=== PATIENT | male | born 1990 ===

== ENCOUNTER 2016-08-17 11:33 | Emergency (ER) | payer MEDICAID, OTHER ==
[2016-08-17 11:39] VITALS: BMI 34.0
[2016-08-17] MEDS ORDERED: Sodium Chloride 0.9% 1,000 ML IV SCH (12:00)
--- NOTE | 2016-08-17 12:06 | ED PDOC ---
HPI: Abdomen Time Seen by Provider: 08/17/16 11:45 Chief Complaint (Nursing): Abdominal Pain Additional Complaint(s): Patient is a 26 y/o M presenting with 2 day history of non-radiating LLQ pain. He denies exacerbating or remitting factors. He reports that he has had a similar previous episode 2 years ago that he thinks was diverticulitis. He denies fever, nausea/vomiting, constipation, dysuria, scrotal swelling or pain, penile discharge. He reports some loose stool but reports that his mother gave him a laxative recently. Denies hx of abdominal surgeries, Past Medical History Vital Signs: Last Vital Signs Temp 97 F L 08/17/16 11:38 Pulse 76 08/17/16 11:38 Resp 18 08/17/16 13:10 BP 128/63 08/17/16 11:38 Pulse Ox 99 08/17/16 12:08 - Medical History PMH: Gastritis - Family History Family History: States: Diabetes - Home Medications Home Medications: Ambulatory Orders Medication Instructions Recorded Cyclobenzaprine HCl [Flexeril] 1 tab PO TID PRN #25 tab 08/16/13 Naproxen [Naprosyn] 1 tab PO BID PRN #25 tab 08/16/13 Naproxen 375 mg PO Q8 PRN #21 tab 06/08/14 diaZEpam [Valium] 1 tab PO Q6 PRN #14 tab 06/08/14 Naproxen 500 mg PO Q12 #20 tab 12/02/14 Ondansetron [Zofran] 4 mg PO Q8H #9 tab 12/02/14 Acetaminophen with Codeine 1 tab PO Q8H #10 tab 12/08/14 [Tylenol with Codeine No. 3 300 mg-30 mg] Ciprofloxacin HCl [Cipro] 500 mg PO BID #20 tab 12/08/14 Ciprofloxacin [Cipro] 500 mg PO BID #20 tab 08/17/16 Metronidazole [Flagyl] 500 mg PO TID #30 tab 08/17/16 - Allergies Allergies/Adverse Reactions: Allergies Allergy/AdvReac Type Severity Reaction Status Date / Time No Known Allergies Allergy Verified 08/17/16 11:41 Review of Systems Constitutional: Negative for: Fever, Chills Cardiovascular: Negative for: Chest Pain, Palpitations Respiratory: Negative for: Cough, Shortness of Breath, SOB with Exertion Gastrointestinal: Positive for: Abdominal Pain, Diarrhea. Negative for: Nausea , Vomiting, Constipation, Hematochezia, Hematemesis, Rectal Pain Genitourinary Male: Negative for: Dysuria, Frequency, Incontinence, Hematuria, Penile Discharge, Scrotal Pain, Penile Pain Musculoskeletal: Negative for: Neck Pain, Shoulder Pain, Back Pain Neurological: Negative for: Weakness, Numbness Psych: Negative for: Anxiety Physical Exam - Reviewed Nursing Documentation Reviewed: Yes Vital Signs Reviewed: Yes - Physical Exam Appears: Positive for: Well, Non-toxic Head Exam: Positive for: ATRAUMATIC, NORMAL INSPECTION, NORMOCEPHALIC Eye Exam: Positive for: EOMI, Normal appearance, PERRL Neck: Positive for: Normal, Painless ROM Cardiovascular/Chest: Positive for: Regular Rate, Rhythm Respiratory: Positive for: Normal Breath Sounds. Negative for: Rales, Rhonchi, Stridor Gastrointestinal/Abdominal: Positive for: Soft, Tenderness (LLQ tenderness). Negative for: Mass, Distended, Guarding Back: Positive for: Normal Inspection. Negative for: L CVA Tenderness, R CVA Tenderness Neurologic/Psych: Positive for: Alert, Oriented - Laboratory Results Result Diagrams: 08/17/16 12:30 08/17/16 12:30 - ECG O2 Sat by Pulse Oximetry: 99 Medical Decision Making Medical Decision Making: Patient has LLQ tenderness on exam. Will get labs, give IVF and pain medication and get CT to eval for diverticulitis. Prior CT reviewed and showed gastritis and ?epiploic appendagitis 5:49PM CT consistent with diverticulitis. Patient is tolerating po and reports pain is under control. Labs show normal WBC. Patient given cipro and flagyl IV. Patient was given detailed return instructions and will return with any worsening symptoms. Disposition - Clinical Impression Clinical Impression: Diverticulitis - Disposition Disposition: Routine/Home Disposition Time: 17:51 Condition: GOOD Additional Instructions: Follow up with PMD within 2 days. Take full course of antibiotics. Return to ED if condition worsens. Prescriptions: Ciprofloxacin [Cipro] 500 mg PO BID #20 tab Metronidazole [Flagyl] 500 mg PO TID #30 tab Instructions: Diverticulitis (DC), Diverticulitis Diet (ED)
[2016-08-17 12:41] LABS: BASO # 0.1 K/uL (0.0-0.2); BASO % 1.1 % (0.0-2.0); EOS # 0.1 K/uL (0.0-0.7); EOS % 1.2 % (0.0-4.0); HEMATOCRIT 44.7 % (35.0-51.0); LYMPH # 1.6 K/uL (1.0-4.3); MEAN CELL VOLUME 99.9 fl (80.0-94.0); MEAN CORPUSCULAR HEMOGLOBIN 32.7 pg (27.0-31.0); MEAN CORPUSCULAR HGB CONC 32.7 g/dL (33.0-37.0); MEAN PLATELET VOLUME 10.5 fl (7.2-11.7); MONO # 0.5 K/uL (0.0-0.8); MONO % 6.3 % (0.0-10.0); NEUT # 5.3 K/uL (1.8-7.0); NEUT % 70.4 % (50.0-75.0); RED CELL DISTRIBUTION WIDTH 12.5 % (11.5-14.5); WHITE BLOOD COUNT 7.5 K/uL (4.8-10.8)
[2016-08-17 13:01] LABS: ALB/GLOB RATIO 1.5 (1.0-2.1); ALKALINE PHOSPHATASE 88 U/L (38-126); ALT/SGPT 64 U/L (21-72); AST/SGOT 67 U/L (17-59); BILIRUBIN,TOTAL 1.7 mg/dl (0.2-1.3); BLOOD UREA NITROGEN 16 mg/dl (9-20); CALCIUM 9.6 mg/dL (8.4-10.2); CARBON DIOXIDE 25 mmol/L (22-30); CHLORIDE 107 mmol/L (98-107); GFR AFRICAN-AMERICAN > 60; GLUCOSE,RANDOM 87 mg/dL (75-110); LIPASE 31 U/L (23-300); SODIUM 142 mmol/l (132-148); TOTAL PROTEIN 8.5 G/DL (6.3-8.2)
[2016-08-17 13:02] LABS: POTASSIUM 5.1 MMOL/L (3.6-5.0)
[2016-08-17] MEDS ORDERED: Sodium Chloride 0.9% 50 ML IV ONE (13:32)
[2016-08-17] MEDS ORDERED: Iohexol 300 100 ML IJ ONE (13:32)
[2016-08-17 14:34] LABS: RBC URINE 4 /hpf (0-3); URINE BACTERIA RARE (<OCC); URINE BILIRUBIN NEGATIVE (NEGATIVE); URINE BLOOD NEGATIVE (NEGATIVE); URINE GLUCOSE (UA) NEG (Normal); URINE KETONE NEGATIVE (NEGATIVE); URINE LEUKOCYTE ESTERASE NEG Leu/uL (Negative); URINE PROTEIN 30 mg/dL (NEGATIVE); URINE UROBILINOGEN 0.2-1.0 mg/dL (0.2-1.0); WBC URINE 2 /hpf (0-5)
[2016-08-17 14:38] LABS: URINE COLOR YELLOW (YELLOW)
--- NOTE | 2016-08-17 14:59 | CT ---
PROCEDURE: CT Abdomen and Pelvis with contrast HISTORY: LLQ pain COMPARISON: None available. TECHNIQUE: Contrast dose: 95 mL Omnipaque 300 Radiation dose: Total exam DLP = 1064.21 mGy-cm. This CT exam was performed using one or more of the following dose reduction techniques: Automated exposure control, adjustment of the mA and/or kV according to patient size, and/or use of iterative reconstruction technique. FINDINGS: LOWER THORAX: No visible consolidation, pleural effusion, or pneumothorax. LIVER: Unremarkable unenhanced appearance. GALLBLADDER AND BILE DUCTS: Unremarkable unenhanced appearance. PANCREAS: Unremarkable unenhanced appearance. SPLEEN: Unremarkable unenhanced appearance. ADRENALS: Unremarkable unenhanced appearance. KIDNEYS AND URETERS: The kidneys enhance symmetrically. No hydronephrosis or obstructing calculus identified. VASCULATURE: No aortic aneurysm. BOWEL: Stomach is nondistended. Lack of oral contrast limits evaluation for bowel pathology. Bowel loops appear within normal limits of caliber without evidence of obstruction. Diverticula, wall thickening, and associated inflammatory changes involving the sigmoid colon consistent with acute diverticulitis (for example, coronal image 43). APPENDIX: The appendix appears within normal limits of caliber. No secondary signs of acute appendicitis. PERITONEUM: Small pelvic free fluid, unusual in a young male patient. No free air. LYMPH NODES: No bulky adenopathy identified. BLADDER: Under distended urinary bladder precludes adequate evaluation. REPRODUCTIVE: Unremarkable. BONES: No acute osseous abnormality is detected. OTHER FINDINGS: None. IMPRESSION: Findings consistent with acute diverticulitis involving the sigmoid colon. Small pelvic free fluid, unusual in a young male patient.
[2016-08-17] MEDS ORDERED: metroNIDAZOLE 500mg/100ml NS 100 ML IVPB STA (15:04)
[2016-08-17] MEDS ORDERED: Ciprofloxacin 400mg/200ml D5W 400 MG/200 ML BAG IVPB STA (15:04)
[2016-08-17] MEDS ORDERED: Ciprofloxacin 400mg/200ml D5W 400 MG/200 ML BAG IVPB ONE (15:08)
[2016-08-17] MEDS ORDERED: metroNIDAZOLE 500mg/100ml NS 100 ML IVPB ONE (16:30)
[2016-08-17 18:09] VITALS: BP 135/68; PULSE 64; RESP 16; TEMP 98.3; O2SAT 100
== END 2016-08-17 18:08 | disposition home or self-care (01) ==
LOC: H.ER 11:33
DX: K57.92 Diverticulitis of intestine, part unspecified, without perforation or abscess without bleeding (principal)
CPT/HCPCS: 74177; 80053; 81003; 83690; 85025; 96361; 96365; 96367; 96375; 99284; J0744; J1885; J7040; Q9967

== ENCOUNTER 2016-08-18 04:14 | Emergency (ER) | payer OTHER ==
[2016-08-18 04:14] VITALS: BMI 34.0
[2016-08-18 04:28] VITALS: BP 143/68; PULSE 65; RESP 16; TEMP 98.6; O2SAT 99
[2016-08-18] MEDS ORDERED: Sodium Chloride 0.9% 1,000 ML IV STA (04:57)
--- NOTE | 2016-08-18 04:59 | ED PDOC ---
HPI: Abdomen Time Seen by Provider: 08/18/16 04:57 Chief Complaint (Nursing): Abdominal Pain Chief Complaint (Provider): ABDOMINAL PAIN History Per: Patient (26 Y/O MALE HERE FOR LLQ ABDOMINAL PAIN X 2-3 DAYS. PATIENT WAS SEEN IN ED YESTERDAY AND WAS FOUND TO HAVE DIVERTICULITIS ON CT SCAN OF ABDOMEN/PELVIS. NO FEVERS/CHILLS/VOMITING. NO WBC NOTED.) Past Medical History Reviewed: Historical Data, Nursing Documentation, Vital Signs Vital Signs: Last Vital Signs Temp 98.6 F 08/18/16 04:26 Pulse 65 08/18/16 04:26 Resp 16 08/18/16 04:26 BP 143/68 08/18/16 04:26 Pulse Ox 99 08/18/16 05:21 - Medical History PMH: Gastritis - Family History Family History: States: Diabetes - Home Medications Home Medications: Ambulatory Orders Medication Instructions Recorded Cyclobenzaprine HCl [Flexeril] 1 tab PO TID PRN #25 tab 08/16/13 Naproxen [Naprosyn] 1 tab PO BID PRN #25 tab 08/16/13 Naproxen 375 mg PO Q8 PRN #21 tab 06/08/14 diaZEpam [Valium] 1 tab PO Q6 PRN #14 tab 06/08/14 Naproxen 500 mg PO Q12 #20 tab 12/02/14 Ondansetron [Zofran] 4 mg PO Q8H #9 tab 12/02/14 Acetaminophen with Codeine 1 tab PO Q8H #10 tab 12/08/14 [Tylenol with Codeine No. 3 300 mg-30 mg] Ciprofloxacin HCl [Cipro] 500 mg PO BID #20 tab 12/08/14 Ciprofloxacin [Cipro] 500 mg PO BID #20 tab 08/17/16 Metronidazole [Flagyl] 500 mg PO TID #30 tab 08/17/16 Ondansetron [Zofran Odt] 4 mg PO Q8 PRN #6 tab.rapdis 08/18/16 oxyCODONE/Acetaminophen [Percocet 1 ea PO Q6 PRN #10 tab 08/18/16 5/325 mg Tab] - Allergies Allergies/Adverse Reactions: Allergies Allergy/AdvReac Type Severity Reaction Status Date / Time No Known Allergies Allergy Verified 08/18/16 04:25 Review of Systems ROS Statement: Except As Marked, All Systems Reviewed And Found Negative Physical Exam - Reviewed Nursing Documentation Reviewed: Yes Vital Signs Reviewed: Yes - Physical Exam Appears: Positive for: Well, Non-toxic, No Acute Distress Head Exam: Positive for: ATRAUMATIC, NORMAL INSPECTION, NORMOCEPHALIC Skin: Positive for: Normal Color, Warm, DRY Eye Exam: Positive for: EOMI, Normal appearance, PERRL ENT: Positive for: Normal ENT Inspection Neck: Positive for: Normal, Painless ROM Cardiovascular/Chest: Positive for: Regular Rate, Rhythm Respiratory: Positive for: CNT, Normal Breath Sounds Gastrointestinal/Abdominal: Positive for: Normal Exam, Bowel Sounds, Soft, Tenderness (MILD LLQ TENDERNESS) Back: Positive for: Normal Inspection Extremity: Positive for: Normal ROM Neurologic/Psych: Positive for: Alert, Oriented - ECG O2 Sat by Pulse Oximetry: 99 - Progress ED Course And Treament: MORPHINE 4mg V X 1 DOSE NS 1 LITER WIDE OPEN. d/w family med resident. Dr. Samson states he has availability next week. Patient to f/u outpatient. Disposition - Clinical Impression Clinical Impression: Diverticulitis - Patient ED Disposition Is Patient to be Admitted: No - Disposition Referrals: [facility] [Outside] Disposition: Routine/Home Disposition Time: 05:43 Condition: FAIR Prescriptions: Ondansetron [Zofran Odt] 4 mg PO Q8 PRN #6 tab.rapdis PRN Reason: Nausea/Vomiting oxyCODONE/Acetaminophen [Percocet 5/325 mg Tab] 1 ea PO Q6 PRN #10 tab PRN Reason: Pain, Severe (8-10) Instructions: Diverticulitis (DC) Forms: [facility] ED School/Work Excuse
== END 2016-08-18 06:19 | disposition home or self-care (01) ==
LOC: H.ER 04:14
DX: K57.92 Diverticulitis of intestine, part unspecified, without perforation or abscess without bleeding (principal)

== ENCOUNTER 2016-09-11 23:51 | Emergency (ER) | payer SELFPAY ==
[2016-09-11 23:52] VITALS: BMI 34.0
[2016-09-11 23:58] VITALS: BP 133/66; PULSE 82; RESP 18; TEMP 98.2; O2SAT 98
[2016-09-12] MEDS ORDERED: Amoxicillin-Clav 875-125 mg Tab PO STA (00:36)
[2016-09-12] MEDS ORDERED: Rabies Immune Globulin 150 INTLU/ML VIAL IM ONE (00:44)
[2016-09-12] MEDS ORDERED: RABIES VACCINE 2.5 U PDR IM ONE (00:44)
[2016-09-12] MEDS ORDERED: TDAP Vaccine 0.5 mL Syr IM ONE (00:45)
--- NOTE | 2016-09-12 00:55 | ED PDOC ---
HPI: Skin/Bite Injury Time Seen by Provider: 09/11/16 23:57 Chief Complaint (Nursing): Bite Chief Complaint (Provider): dog bite History Per: Patient History/Exam Limitations: no limitations Onset/Duration Of Symptoms: Hrs Current Symptoms Are (Timing): Still Present Quality Of Symptoms: Painful, Swollen Additional History Per: Patient Additional Complaint(s): 26 y/o male presents for eval of dog bite to left hand, sustained around 16:00 today. Patient states [place] it [place] she came to him to he pet it with his right hand and when he wanted to pet her with his left hand she bit him and then ran away. No collar noted. Patient cleaned area but presented to the ED due to localized swelling he noted before arrival. Denies fever, numbness/weakness left upper extremity. Last Tetanus vaccine unknown. Past Medical History Reviewed: Historical Data, Nursing Documentation, Vital Signs Vital Signs: Last Vital Signs Temp 98.2 F 09/11/16 23:55 Pulse 82 09/11/16 23:55 Resp 18 09/11/16 23:55 BP 133/66 09/11/16 23:55 Pulse Ox 98 09/12/16 00:57 - Medical History PMH: Diverticulitis, Gastritis - Surgical History Surgical History: No Surg Hx - Family History Family History: States: Diabetes - Home Medications Home Medications: Ambulatory Orders Medication Instructions Recorded Cyclobenzaprine HCl [Flexeril] 1 tab PO TID PRN #25 tab 08/16/13 Naproxen [Naprosyn] 1 tab PO BID PRN #25 tab 08/16/13 Naproxen 375 mg PO Q8 PRN #21 tab 06/08/14 diaZEpam [Valium] 1 tab PO Q6 PRN #14 tab 06/08/14 Naproxen 500 mg PO Q12 #20 tab 12/02/14 Ondansetron [Zofran] 4 mg PO Q8H #9 tab 12/02/14 Acetaminophen with Codeine 1 tab PO Q8H #10 tab 12/08/14 [Tylenol with Codeine No. 3 300 mg-30 mg] Ciprofloxacin HCl [Cipro] 500 mg PO BID #20 tab 12/08/14 Ciprofloxacin [Cipro] 500 mg PO BID #20 tab 08/17/16 Metronidazole [Flagyl] 500 mg PO TID #30 tab 08/17/16 Ondansetron [Zofran Odt] 4 mg PO Q8 PRN #6 tab.rapdis 08/18/16 oxyCODONE/Acetaminophen [Percocet 1 ea PO Q6 PRN #10 tab 08/18/16 5/325 mg Tab] Amoxicillin/Clavulanate [Augmentin 1 tab PO Q12 #13 tab 09/12/16 875 MG-125 MG] Naproxen [Naprosyn] 500 mg PO Q12 PRN #20 tablet 09/12/16 - Allergies Allergies/Adverse Reactions: Allergies Allergy/AdvReac Type Severity Reaction Status Date / Time No Known Allergies Allergy Verified 08/18/16 04:25 Review of Systems ROS Statement: Except As Marked, All Systems Reviewed And Found Negative Musculoskeletal: Positive for: Hand Pain (left hand) Physical Exam - Reviewed Nursing Documentation Reviewed: Yes Vital Signs Reviewed: Yes - Physical Exam Appears: Positive for: Well, Non-toxic, No Acute Distress Head Exam: Positive for: ATRAUMATIC, NORMAL INSPECTION, NORMOCEPHALIC Skin: Positive for: Normal Color ENT: Positive for: Normal ENT Inspection Cardiovascular/Chest: Positive for: Regular Rate, Rhythm Respiratory: Positive for: Normal Breath Sounds Pulses-Radial (L): 2+ Pulses-Radial (R): 2+ Gastrointestinal/Abdominal: Positive for: Normal Exam Extremity: Positive for: Normal ROM, Swelling (puncture wound noted dorsal left hand inbetween 1-2 digit; mild active bleeding with surrounding edema. No drainage, erythema noted) Neurologic/Psych: Positive for: Alert, Oriented. Negative for: Motor/Sensory Deficits - ECG O2 Sat by Pulse Oximetry: 98 - Progress ED Course And Treament: Boostrix IM, rabies vaccine, rabies immunglobulin, Augmentin PO Puncture wound irrigated with 250mL NS Neosporin applied to wound, bandaged. Patient educated on wound care, discharged with rx Augmentin, Naproxen. Advised to follow up for rabies vaccines as scheduled. Ice, elevate area. Return to ED for fever, increased pain/redness/drainage from site, or other concerning symptoms. Disposition - Clinical Impression Clinical Impression: Dog bite of left hand - Patient ED Disposition Is Patient to be Admitted: No Counseled Patient/Family Regarding: Diagnosis, Need For Followup, Rx Given - Disposition Referrals: [facility] [Outside] Disposition: Routine/Home Disposition Time: 03:31 Condition: STABLE Additional Instructions: Follow up as scheduled for Rabies Vaccines. Take medication as directed. Clean wound daily, apply neosporin. Return to ED for worsening/concerning symptoms. Prescriptions: Amoxicillin/Clavulanate [Augmentin 875 MG-125 MG] 1 tab PO Q12 #13 tab Naproxen [Naprosyn] 500 mg PO Q12 PRN #20 tablet PRN Reason: Pain, Moderate (4-7) Instructions: Animal Bite (ED)
[2016-09-12] MEDS ORDERED: Amoxicillin-Clav 875-125 mg Tab PO ONE (01:16)
== END 2016-09-12 04:11 | disposition home or self-care (01) ==
LOC: H.ER 23:51
DX: S61.452A Open bite of left hand, initial encounter (principal); Z23 Encounter for immunization; W54.0XXA Bitten by dog, initial encounter

== ENCOUNTER 2016-09-15 22:55 | Emergency (ER) | payer SELFPAY ==
[2016-09-15 22:56] VITALS: BMI 34.0
[2016-09-15 23:07] VITALS: BP 137/70; PULSE 59; RESP 14; TEMP 98.1; O2SAT 98
[2016-09-15] MEDS ORDERED: RABIES VACCINE 2.5 U PDR IM ONE (23:09)
--- NOTE | 2016-09-15 23:32 | ED PDOC ---
HPI: General Adult Time Seen by Provider: 09/15/16 23:08 Chief Complaint (Nursing): Wound Check Additional Complaint(s): 26yo Min Ed for 2nd rabies vaccination. Past Medical History Reviewed: Historical Data, Nursing Documentation, Vital Signs Vital Signs: Last Vital Signs Temp 98.1 F 09/15/16 23:04 Pulse 59 L 09/15/16 23:04 Resp 14 09/15/16 23:04 BP 137/70 09/15/16 23:04 Pulse Ox 98 09/15/16 23:04 - Medical History PMH: Diverticulitis, Gastritis - Family History Family History: States: Diabetes - Home Medications Home Medications: Ambulatory Orders Medication Instructions Recorded Cyclobenzaprine HCl [Flexeril] 1 tab PO TID PRN #25 tab 08/16/13 Naproxen [Naprosyn] 1 tab PO BID PRN #25 tab 08/16/13 Naproxen 375 mg PO Q8 PRN #21 tab 06/08/14 diaZEpam [Valium] 1 tab PO Q6 PRN #14 tab 06/08/14 Naproxen 500 mg PO Q12 #20 tab 12/02/14 Ondansetron [Zofran] 4 mg PO Q8H #9 tab 12/02/14 Acetaminophen with Codeine 1 tab PO Q8H #10 tab 12/08/14 [Tylenol with Codeine No. 3 300 mg-30 mg] Ciprofloxacin HCl [Cipro] 500 mg PO BID #20 tab 12/08/14 Ciprofloxacin [Cipro] 500 mg PO BID #20 tab 08/17/16 Metronidazole [Flagyl] 500 mg PO TID #30 tab 08/17/16 Ondansetron [Zofran Odt] 4 mg PO Q8 PRN #6 tab.rapdis 08/18/16 oxyCODONE/Acetaminophen [Percocet 1 ea PO Q6 PRN #10 tab 08/18/16 5/325 mg Tab] Amoxicillin/Clavulanate [Augmentin 1 tab PO Q12 #13 tab 09/12/16 875 MG-125 MG] Naproxen [Naprosyn] 500 mg PO Q12 PRN #20 tablet 09/12/16 - Allergies Allergies/Adverse Reactions: Allergies Allergy/AdvReac Type Severity Reaction Status Date / Time No Known Allergies Allergy Verified 08/18/16 04:25 Review of Systems ROS Statement: Except As Marked, All Systems Reviewed And Found Negative Constitutional: Negative for: Fever Physical Exam - Reviewed Nursing Documentation Reviewed: Yes Vital Signs Reviewed: Yes - Physical Exam Appears: Positive for: Well, Non-toxic, No Acute Distress Head Exam: Positive for: NORMOCEPHALIC Skin: Positive for: Normal Color, Warm, DRY Extremity: Positive for: Normal ROM. Negative for: Swelling Neurologic/Psych: Positive for: Alert, Oriented - ECG O2 Sat by Pulse Oximetry: 98 - Progress ED Course And Treament: rabies vaccination admin . in ED Medical Decision Making Medical Decision Making: pt received 2nd dose of IM rabies vaccination. Disposition - Clinical Impression Clinical Impression: Need for immunization against rabies - Patient ED Disposition Is Patient to be Admitted: No Counseled Patient/Family Regarding: Need For Followup - Disposition Disposition: Routine/Home Disposition Time: 23:33 Condition: STABLE Instructions: Rabies Vaccine (By injection)
== END 2016-09-15 23:35 | disposition home or self-care (01) ==
LOC: H.ER 22:55
DX: Z23 Encounter for immunization (principal)

== ENCOUNTER 2017-10-28 19:03 | Emergency (ER) | payer SELFPAY ==
[2017-10-28 19:03] VITALS: BMI 34.0
[2017-10-28 19:41] VITALS: BP 146/76; PULSE 65; RESP 17; TEMP 97.9; O2SAT 98
[2017-10-28] MEDS ORDERED: Lidocaine 1% (10 ml) Inj INFIL ONE (19:47)
[2017-10-28] MEDS ORDERED: Lidocaine PF 2% (5 ml) Inj (For Cardiac Arrhy) ONE (20:11)
[2017-10-28] MEDS ORDERED: Povidone Iodine Topical 10% Sol ONE (20:11)
--- NOTE | 2017-10-28 20:39 | ED PDOC ---
Upper Extremity Pain/Injury Time Seen by Provider: 10/28/17 19:43 Chief Complaint (Nursing): Abnormal Skin Integrity Chief Complaint (Provider): Right Finger Laceration History Per: Patient History/Exam Limitations: no limitations Onset/Duration Of Symptoms: Hrs Current Symptoms Are (Timing): Still Present Quality: "Pain" Additional Complaint(s): 27 year old male presents to the ER for an evaluation of his right finger. Patient reports earlier today, he was fixing his friends's car when his right finger became caught in a screw. Patient states his Tetanus is UTD. He denies numbness, tingling or surrounding foreign bodies. PMD: No Family Provider Past Medical History Reviewed: Historical Data, Nursing Documentation, Vital Signs Vital Signs: Last Vital Signs Temp 97.9 F 10/28/17 19:35 Pulse 65 10/28/17 19:35 Resp 17 10/28/17 19:35 BP 146/76 10/28/17 19:35 Pulse Ox 98 10/28/17 19:35 - Medical History PMH: Diverticulitis, Gastritis - Surgical History Surgical History: No Surg Hx - Family History Family History: States: Diabetes - Home Medications Home Medications: Ambulatory Orders Medication Instructions Recorded Cyclobenzaprine HCl [Flexeril] 1 tab PO TID PRN #25 tab 08/16/13 Naproxen [Naprosyn] 1 tab PO BID PRN #25 tab 08/16/13 Naproxen 375 mg PO Q8 PRN #21 tab 06/08/14 diaZEpam [Valium] 1 tab PO Q6 PRN #14 tab 06/08/14 Naproxen 500 mg PO Q12 #20 tab 12/02/14 Ondansetron [Zofran] 4 mg PO Q8H #9 tab 12/02/14 Acetaminophen with Codeine 1 tab PO Q8H #10 tab 12/08/14 [Tylenol with Codeine No. 3 300 mg-30 mg] Ciprofloxacin HCl [Cipro] 500 mg PO BID #20 tab 12/08/14 Ciprofloxacin [Cipro] 500 mg PO BID #20 tab 08/17/16 Metronidazole [Flagyl] 500 mg PO TID #30 tab 08/17/16 Ondansetron [Zofran Odt] 4 mg PO Q8 PRN #6 tab.rapdis 08/18/16 oxyCODONE/Acetaminophen [Percocet 1 ea PO Q6 PRN #10 tab 08/18/16 5/325 mg Tab] Amoxicillin/Clavulanate [Augmentin 1 tab PO Q12 #13 tab 09/12/16 875 MG-125 MG] Naproxen [Naprosyn] 500 mg PO Q12 PRN #20 tablet 09/12/16 Cephalexin [cephalexin] 500 mg PO Q6 #12 cap 10/28/17 - Allergies Allergies/Adverse Reactions: Allergies Allergy/AdvReac Type Severity Reaction Status Date / Time No Known Allergies Allergy Verified 10/28/17 19:41 Review of Systems ROS Statement: Except As Marked, All Systems Reviewed And Found Negative Musculoskeletal: Positive for: Other (right finger laceration ) Neurological: Negative for: Numbness, Other (tingling ) Physical Exam - Reviewed Nursing Documentation Reviewed: Yes Vital Signs Reviewed: Yes - Physical Exam Appears: Positive for: Non-toxic, No Acute Distress Head Exam: Positive for: ATRAUMATIC, NORMAL INSPECTION, NORMOCEPHALIC Skin: Positive for: Normal Color, Warm, Dry Eye Exam: Positive for: Normal appearance Pulses-Radial (L): 2+ Pulses-Radial (R): 2+ Extremity: Positive for: Normal ROM (actively, no active bleeding ), Capillary Refill (less than 2 seconds), Other (1 cm linear laceration just proximal to the pip of the right 2nd digit, sensation intact). Negative for: Deformity Neurologic/Psych: Positive for: Alert, Oriented (x3). Negative for: Motor/ Sensory Deficits - ECG O2 Sat by Pulse Oximetry: 98 (RA) Pulse Ox Interpretation: Normal Medical Decision Making Medical Decision Making: Time: 1946 Initial Plan: --Lidocaine Hydrochloride 1% 10ml (3ml) --Reevaluation Clinical Impression: finger laceration Upon provider evaluation patient is medically stable, and requires no further treatment in the ED at this time. Patient will be discharged with cephalexin 500mg for wound care. Counseling was provided and all questions were answered regarding diagnosis. There is agreement to discharge plan. Return if symptoms persist or worsen. Scribe Attestation: Documented by Teagan Lema, acting as a scribe for Jhonny Soto PA-C. Provider Scribe Attestation: All medical record entries made by the Scribe were at my direction and personally dictated by me. I have reviewed the chart and agree that the record accurately reflects my personal performance of the history, physical exam, medical decision making, and the department course for this patient. I have also personally directed, reviewed, and agree with the discharge instructions and disposition. Procedures - Time-Out Type of Procedure: Laceration repair Site of Procedure: R 2nd digit Correct Patient: Yes Correct Procedure: Yes Correct Site Marked: Yes PA/Tech: Brittany - Laceration/Wound Repair laceration Wound Length (cm): 1 Wound's Depth, Shape: superficial Wound Explored: dirt noted on R 2nd digit Irrigated w/ Saline (ccs): 200 Betadine Prep?: Yes Anesthesia: 1% Lidocaine Volume Anesthetic (ccs): 2 Wound Repaired With: Sutures Suture Size/Type: 5:0, proline Number of Sutures: 3 Wound Complexity: Simple Disposition - Clinical Impression Clinical Impression: Finger laceration - Patient ED Disposition Is Patient to be Admitted: No - Disposition Referrals: [facility] [Outside] [facility] [Outside] Disposition: Routine/Home Disposition Time: 20:38 Condition: STABLE Additional Instructions: SUTURE REMOVAL IN 10-14 DAYS MAHESH HAYDEN, thank you for letting us take care of you today. Your provider was Jesenia Godfrey MD and you were treated for RT FINGER INJURY. The emergency medical care you received today was directed at your acute symptoms. If you were prescribed any medication, please fill it and take as directed. It may take several days for your symptoms to resolve. Return to the Emergency Department if your symptoms worsen, do not improve, or if you have any other problems. Please contact your doctor or call one of the physicians/clinics you have been referred to that are listed on the Patient Visit Information form that is included in your discharge packet. Bring any paperwork you were given at discharge with you along with any medications you are taking to your follow up visit. Our treatment cannot replace ongoing medical care by a primary care provider outside of the emergency department. Thank you for allowing the [facility] team to be part of your care today. If you had an X-Ray or CT scan: A Radiologist will review the ED reading if any change in treatment is needed we will contact you. If you had a blood, urine, or wound culture: It will take several days for the results, if any change in treatment is needed we will contact you. If you had an STI test: It will take 48 hours for the results. Please call after 1 week if you have not heard back. Prescriptions: Cephalexin [cephalexin] 500 mg PO Q6 #12 cap Instructions: Wound Care (DC), Laceration Repair With Stitches (DC) Forms: [facility] (Malaysian) Print Language: [email or web address]
== END 2017-10-28 22:11 | disposition home or self-care (01) ==
LOC: H.ER 19:03
DX: S61.200A Unspecified open wound of right index finger without damage to nail, initial encounter (principal); W26.8XXA Contact with other sharp object(s), not elsewhere classified, initial encounter; Y92.89 Other specified places as the place of occurrence of the external cause

== ENCOUNTER 2017-11-11 00:48 | Emergency (ER) | payer SELFPAY ==
[2017-11-11 00:48] VITALS: BMI 34.0
[2017-11-11 03:31] VITALS: BP 135/75; PULSE 64; RESP 17; TEMP 98.4; O2SAT 98
--- NOTE | 2017-11-11 03:47 | ED PDOC ---
HPI: Wound Care - HPI Time Seen by Provider: 11/11/17 03:38 Chief Complaint (Nursing): Suture/Staple Removal Chief Complaint (Provider): Suture/Staple Removal History Per: Patient Exam Limitations: no limitations Additional Complaint(s): 27 year old right hand dominant male presents to the ED for wound check and suture removal from right index finger. 3 sutures were placed on October 28 after patient injured finger on a screw while working on a car. Patient completed prescribed course of Keflex. Denies any wound complications, fever, chills, drainage, swelling, increased pain. No other complaints. Tetanus: UTD PMD: none provided Past Medical History Reviewed: Historical Data, Nursing Documentation, Vital Signs Vital Signs: Last Vital Signs Temp 98.4 F 11/11/17 02:10 Pulse 64 11/11/17 02:10 Resp 17 11/11/17 02:10 BP 135/75 11/11/17 02:10 Pulse Ox 98 11/11/17 02:10 - Medical History PMH: Diverticulitis, Gastritis - Surgical History Surgical History: No Surg Hx - Family History Family History: States: Diabetes - Home Medications Home Medications: Ambulatory Orders Medication Instructions Recorded Cyclobenzaprine HCl [Flexeril] 1 tab PO TID PRN #25 tab 08/16/13 Naproxen [Naprosyn] 1 tab PO BID PRN #25 tab 08/16/13 Naproxen 375 mg PO Q8 PRN #21 tab 06/08/14 diaZEpam [Valium] 1 tab PO Q6 PRN #14 tab 06/08/14 Naproxen 500 mg PO Q12 #20 tab 12/02/14 Ondansetron [Zofran] 4 mg PO Q8H #9 tab 12/02/14 Acetaminophen with Codeine 1 tab PO Q8H #10 tab 12/08/14 [Tylenol with Codeine No. 3 300 mg-30 mg] Ciprofloxacin HCl [Cipro] 500 mg PO BID #20 tab 12/08/14 Ciprofloxacin [Cipro] 500 mg PO BID #20 tab 08/17/16 Metronidazole [Flagyl] 500 mg PO TID #30 tab 08/17/16 Ondansetron [Zofran Odt] 4 mg PO Q8 PRN #6 tab.rapdis 08/18/16 oxyCODONE/Acetaminophen [Percocet 1 ea PO Q6 PRN #10 tab 08/18/16 5/325 mg Tab] Amoxicillin/Clavulanate [Augmentin 1 tab PO Q12 #13 tab 09/12/16 875 MG-125 MG] Naproxen [Naprosyn] 500 mg PO Q12 PRN #20 tablet 09/12/16 Cephalexin [cephalexin] 500 mg PO Q6 #12 cap 10/28/17 - Allergies Allergies/Adverse Reactions: Allergies Allergy/AdvReac Type Severity Reaction Status Date / Time No Known Allergies Allergy Verified 10/28/17 19:41 Review of Systems ROS Statement: Except As Marked, All Systems Reviewed And Found Negative Skin: Positive for: Other (sutures present to right index finger) Physical Exam - Reviewed Nursing Documentation Reviewed: Yes Vital Signs Reviewed: Yes - Physical Exam Comments: GENERAL APPEARANCE: Patient is awake, alert, oriented x 3, in no acute distress. SKIN: Warm, dry; (-) cyanosis. EXTREMITY: [address] to a curvalinear healing 1.5 cm laceration to dorsum of middle phalanx of right second digit. FROM (-) swelling, (-) ecchymosis, (-)warmth, (-) tenderness, (-) deformity. Sensation intact. Capillary refill < 2 seconds. NEURO AND PSYCH: Mental status as above. Gait steady. Speech clear. - ECG O2 Sat by Pulse Oximetry: 98 (RA) Pulse Ox Interpretation: Normal Medical Decision Making Medical Decision Makin Initial Impression: Wound check, Suture removal Plan: -3 sutures removed without difficulty by Bebo COLLADO. Patient advised to continue wound care at home. Vitals stable. Stable for discharge. Patient instructed to follow-up with pmd / referral provided / the clinic in 1- 2 days without fail. Return to the emergency room at any time for any new or worsening symptoms. Patient states he fully agrees with and understands discharge instructions. States that he agrees with the plan and disposition. Verbalized and repeated discharge instructions and plan. I have given the patient opportunity to ask any additional questions. Disposition - Clinical Impression Clinical Impression: Removal of suture, Visit for wound check - Patient ED Disposition Is Patient to be Admitted: No Counseled Patient/Family Regarding: Studies Performed, Diagnosis, Need For Followup - Disposition Referrals: [facility] [Outside] Disposition: Routine/Home Disposition Time: 03:45 Condition: STABLE Additional Instructions: The emergency medical care you received today was directed towards the acute presenting symptoms. If you were prescribed any medication, please fill it and give as directed. It may take several days for your symptoms to resolve. Return to the Emergency Department at any time if symptoms worsen, do not improve, or if any other problems arise. Please contact your doctor in 2 days for re-evaluation and follow up / or call one of the physicians/clinics you have been referred to that are listed on the Patient Visit Information form that is included in your discharge packet. Bring any paperwork you were given at discharge with you along with any medications to your follow up visit. Our treatment cannot replace ongoing medical care by a primary care provider (PCP) outside of the emergency department. Instructions: Stitches Removal, Wound Care Forms: [facility] (Palestinian) Print Language: GUINEAN - POA Present On Arrival: None
== END 2017-11-11 04:02 | disposition home or self-care (01) ==
LOC: H.ER 00:48
DX: Z48.02 Encounter for removal of sutures (principal)

== ENCOUNTER 2017-11-20 23:41 | Emergency (ER) | payer SELFPAY ==
[2017-11-20 23:41] VITALS: BMI 34.0
[2017-11-21 00:17] VITALS: BP 144/71; PULSE 72; RESP 18; TEMP 98.7; O2SAT 99
--- NOTE | 2017-11-21 01:13 | ED PDOC ---
Upper Extremity Pain/Injury Time Seen by Provider: 11/21/17 00:18 Chief Complaint (Nursing): Finger,Hand,&Wrist History Per: Patient History/Exam Limitations: no limitations Onset/Duration Of Symptoms: Days Current Symptoms Are (Timing): Still Present Additional Complaint(s): States he had a laceration to R index finger 1.5 months ago, states he had the sutures removed approximately one week prior and for the past 4 days he's noticed swelling of the finger around where the sutures were. Denies redness, fevers, chills. PMD: none Past Medical History Reviewed: Historical Data, Nursing Documentation, Vital Signs Vital Signs: Last Vital Signs Temp 98.7 F 11/21/17 00:05 Pulse 72 11/21/17 00:05 Resp 18 11/21/17 00:05 BP 144/71 11/21/17 00:05 Pulse Ox 99 11/21/17 00:05 - Medical History PMH: Diverticulitis, Gastritis - Family History Family History: States: Diabetes - Home Medications Home Medications: Ambulatory Orders Medication Instructions Recorded Cyclobenzaprine HCl [Flexeril] 1 tab PO TID PRN #25 tab 08/16/13 Naproxen [Naprosyn] 1 tab PO BID PRN #25 tab 08/16/13 Naproxen 375 mg PO Q8 PRN #21 tab 06/08/14 diaZEpam [Valium] 1 tab PO Q6 PRN #14 tab 06/08/14 Naproxen 500 mg PO Q12 #20 tab 12/02/14 Ondansetron [Zofran] 4 mg PO Q8H #9 tab 12/02/14 Acetaminophen with Codeine 1 tab PO Q8H #10 tab 12/08/14 [Tylenol with Codeine No. 3 300 mg-30 mg] Ciprofloxacin HCl [Cipro] 500 mg PO BID #20 tab 12/08/14 Ciprofloxacin [Cipro] 500 mg PO BID #20 tab 08/17/16 Metronidazole [Flagyl] 500 mg PO TID #30 tab 08/17/16 Ondansetron [Zofran Odt] 4 mg PO Q8 PRN #6 tab.rapdis 08/18/16 oxyCODONE/Acetaminophen [Percocet 1 ea PO Q6 PRN #10 tab 08/18/16 5/325 mg Tab] Amoxicillin/Clavulanate [Augmentin 1 tab PO Q12 #13 tab 09/12/16 875 MG-125 MG] Naproxen [Naprosyn] 500 mg PO Q12 PRN #20 tablet 09/12/16 Cephalexin [cephalexin] 500 mg PO Q6 #12 cap 10/28/17 Clindamycin [Cleocin] 300 mg PO TID 10 Days cap 11/21/17 Ibuprofen [Motrin Tab] 600 mg PO Q6 #30 tab 11/21/17 - Allergies Allergies/Adverse Reactions: Allergies Allergy/AdvReac Type Severity Reaction Status Date / Time No Known Allergies Allergy Verified 10/28/17 19:41 Review of Systems ROS Statement: Except As Marked, All Systems Reviewed And Found Negative Musculoskeletal: Positive for: Hand Pain Physical Exam - Reviewed Nursing Documentation Reviewed: Yes Vital Signs Reviewed: Yes - Physical Exam Extremity: Positive for: Other (R 2nd digit: moderate swelling between PIP and DIP, near full range of motion, negative Kanavel's sign, no erythema, sensation intact) - ECG O2 Sat by Pulse Oximetry: 99 Pulse Ox Interpretation: Normal Medical Decision Making Medical Decision Making: Patient with swelling to hand after suture removal one week prior -not concerned for tenosynoviits given near full range of motion, no signs of it currently -possibly seroma -will get xray, give prophylactic ABx -will refer to ortho hand Disposition - Clinical Impression Clinical Impression: Finger swelling - Disposition Referrals: [facility] [Outside] [facility] [Outside] Disposition Time: 02:14 Condition: STABLE Additional Instructions: Ice your hand, take Advil 600mg every 6 hours, followup in the clinic in 2 - 3 days for a wound check. Prescriptions: Clindamycin [Cleocin] 300 mg PO TID 10 Days cap Ibuprofen [Motrin Tab] 600 mg PO Q6 #30 tab Instructions: Muscle and Bone Pain (DC) Forms: [facility] (Urdu)
--- NOTE | 2017-11-21 08:48 | RAD ---
Date of service: 11/21/2017 PROCEDURE: Right Index finger radiographs. HISTORY: finger swelling COMPARISON: None. TECHNIQUE: AP radiograph of the right hand, as well as spot oblique and lateral images of index finger were obtained. FINDINGS: RIGHT INDEX FINGER: No fracture or focal lesion. JOINTS: Normal. SOFT TISSUES: Soft tissue swelling 2nd digit proximal phalangeal location OTHER FINDINGS: None. IMPRESSION: Soft tissue swelling without fracture or periosteal reaction. No dislocation.
== END 2017-11-21 02:40 | disposition home or self-care (01) ==
LOC: H.ER 23:41
DX: R22.31 Localized swelling, mass and lump, right upper limb (principal)

== ENCOUNTER 2018-04-08 17:08 | Emergency (ER) | payer OTHER ==
[2018-04-08 17:09] VITALS: BMI 34.0
[2018-04-08 17:19] VITALS: RESP 20; TEMP 98.3
[2018-04-08] MEDS ORDERED: Albuterol-Ipratrop 3 mg / 0.5 (3 ml) UD IH STA (18:12)
[2018-04-08] MEDS ORDERED: Promethazine/Cod 6.25mg-10mg/5ml Syr UD PO STA (18:13)
--- NOTE | 2018-04-08 18:56 | ED PDOC ---
History of Present Illness History of Present Illness: 28 y/o male with no significant PMHx presents to the ED for evaluation of a cough associated with congestion and worsening shortness of breath, onset two weeks ago. Patient describes cough as dry and intermittent. Patient reports of chest pain occasionally with coughing. Patient additionally reports of taking a two day course of amoxicillin prescribed to him by his friend as well as an [id number] Mucinex with no relief of symptoms. Otherwise, patient denies fevers. PMD: No provider HPI: Influenza Time Seen by Provider: 04/08/18 17:57 Chief Complaint: Cough, Cold, Congestion Chief Complaint (Provider): Cough, Cold, Congestion History Per: Patient Exam Limitations: no limitations Onset/Duration Of Symptoms: Days Symptoms include: cough, nasal congestion, other (shortness of breath) Past Medical History Reviewed: Historical Data, Nursing Documentation, Vital Signs Vital Signs: Last Vital Signs Temp 98.3 F 04/08/18 17:18 Pulse 70 04/08/18 17:18 Resp 20 04/08/18 17:18 BP 128/83 04/08/18 17:18 Pulse Ox 98 04/08/18 17:18 - Medical History PMH: Diverticulitis, Gastritis - Surgical History Surgical History: No Surg Hx - Family History Family History: States: Diabetes - Social History Current smoker - smoking cessation education provided: No Alcohol: None Drugs: Denies - Home Medications Home Medications: Ambulatory Orders Medication Instructions Recorded Cyclobenzaprine HCl [Flexeril] 1 tab PO TID PRN #25 tab 08/16/13 RX: Naproxen [Naprosyn] 1 tab PO BID PRN #25 tab 08/16/13 RX: Naproxen 375 mg PO Q8 PRN #21 tab 06/08/14 diaZEpam [Valium] 1 tab PO Q6 PRN #14 tab 06/08/14 Ondansetron [Zofran] 4 mg PO Q8H #9 tab 12/02/14 RX: Naproxen 500 mg PO Q12 #20 tab 12/02/14 Acetaminophen with Codeine 1 tab PO Q8H #10 tab 12/08/14 [Tylenol with Codeine No. 3 300 mg-30 mg] Ciprofloxacin HCl [Cipro] 500 mg PO BID #20 tab 12/08/14 Ciprofloxacin [Cipro] 500 mg PO BID #20 tab 08/17/16 Metronidazole [Flagyl] 500 mg PO TID #30 tab 08/17/16 Ondansetron [Zofran Odt] 4 mg PO Q8 PRN #6 tab.rapdis 08/18/16 oxyCODONE/Acetaminophen [Percocet 1 ea PO Q6 PRN #10 tab 08/18/16 5/325 mg Tab] Amoxicillin/Clavulanate [Augmentin 1 tab PO Q12 #13 tab 09/12/16 875 MG-125 MG] RX: Naproxen [Naprosyn] 500 mg PO Q12 PRN #20 tablet 09/12/16 Cephalexin [cephalexin] 500 mg PO Q6 #12 cap 10/28/17 RX: Clindamycin [Cleocin] 300 mg PO TID 10 Days cap 11/21/17 RX: Ibuprofen [Motrin Tab] 600 mg PO Q6 #30 tab 11/21/17 RX: Albuterol HFA [Ventolin HFA 90 1 puff IH Q6 #1 inh 04/08/18 mcg/actuation (8 g)] RX: Azithromycin [Z-Kyle] 250 mg PO ASDIR #6 tab 04/08/18 RX: Promethazine/Codeine 5 ml PO Q4 PRN #100 ml 04/08/18 [Phenergan/Codeine Oral Syrup] - Allergies Allergies/Adverse Reactions: Allergies Allergy/AdvReac Type Severity Reaction Status Date / Time No Known Allergies Allergy Verified 04/08/18 17:20 Review of Systems ROS Statement: Except As Marked, All Systems Reviewed And Found Negative Constitutional: Negative for: Fever ENT: Positive for: Nose Congestion Cardiovascular: Positive for: Chest Pain Respiratory: Positive for: Cough, Shortness of Breath Physical Exam - Reviewed Nursing Documentation Reviewed: Yes Vital Signs Reviewed: Yes - Physical Exam Appears: Positive for: No Acute Distress Head Exam: Positive for: ATRAUMATIC, NORMOCEPHALIC Skin: Positive for: Normal Color, Warm, Dry Eye Exam: Positive for: Normal appearance, EOMI, PERRL Neck: Positive for: Normal, Painless ROM Cardiovascular/Chest: Positive for: Regular Rate, Rhythm. Negative for: Chest Non Tender (chest wall tenderness to palpation), Murmur Respiratory: Positive for: Wheezing (wheezes bilaterally) Gastrointestinal/Abdominal: Positive for: Normal Exam, Soft. Negative for: Tenderness Extremity: Positive for: Normal ROM. Negative for: Deformity Neurologic/Psych: Positive for: Alert, Oriented. Negative for: Motor/Sensory Deficits Medical Decision Making Medical Decision Making: Time: 1813 Impression: URI symptoms and wheezing Differentials include but not limited to acute bronchitis, influenza and pneumonia Plan: -- EKG -- CXR Two Views -- Duoneb 3mg/0.5mg 3ml (UD) 3 ml IH -- Motrin 600 mg PO -- Phenergan/Codeine 5 ml PO -- Influenza A B -- Rapid Strep Group A Antigen Time: 1900 -- CXR: normal, no acute findings as read by me. Scribe Attestation: Documented by Raf Carpio, acting as a scribe for Harris Grimm MD. Provider Scribe Attestation: All medical record entries made by the Scribe were at my direction and personally dictated by me. I have reviewed the chart and agree that the record accurately reflects my personal performance of the history, physical exam, medical decision making, and the department course for this patient. I have also personally directed, reviewed, and agree with the discharge instructions and disposition. - ECG ECG: Positive for: Interpreted By Me, Viewed By Me ECG Rhythm: Positive for: Sinus Bradycardia Rate: 52 O2 Sat by Pulse Oximetry: 98 - Progress Re-evaluation Time: 21:00 Condition: Re-examined, Improved Disposition - Clinical Impression Clinical Impression: Bronchitis - Patient ED Disposition Is Patient to be Admitted: No Doctor Will See Patient In The: Office Counseled Patient/Family Regarding: Studies Performed, Diagnosis, Need For Followup - Disposition Referrals: [facility] [Outside] Disposition: Routine/Home Disposition Time: 21:00 Condition: GOOD Additional Instructions: MAHESH HAYDEN, thank you for letting us take care of you today. Your provider was Harris Grimm MD and you were treated for TROUBLE BREATHING. The emergency medical care you received today was directed at your acute symptoms. If you were prescribed any medication, please fill it and take as directed. It may take several days for your symptoms to resolve. Return to the Emergency Department if your symptoms worsen, do not improve, or if you have any other problems. Please contact your doctor or call one of the physicians/clinics you have been referred to that are listed on the Patient Visit Information form that is included in your discharge packet. Bring any paperwork you were given at discharge with you along with any medications you are taking to your follow up visit. Our treatment cannot replace ongoing medical care by a primary care provider outside of the emergency department. Thank you for allowing the [facility] team to be part of your care today. If you had an X-Ray or CT scan: A Radiologist will review the ED reading if any change in treatment is needed we will contact you. If you had a blood, urine, or wound culture: It will take several days for the results, if any change in treatment is needed we will contact you. If you had an STI test: It will take 48 hours for the results. Please call after 1 week if you have not heard back. Prescriptions: RX: Albuterol HFA [Ventolin HFA 90 mcg/actuation (8 g)] 1 puff IH Q6 #1 inh RX: Azithromycin [Z-Kyle] 250 mg PO ASDIR #6 tab RX: Promethazine/Codeine [Phenergan/Codeine Oral Syrup] 5 ml PO Q4 PRN #100 ml PRN Reason: Cough Instructions: Acute Bronchitis Forms: [facility] ED School/Work Excuse
--- NOTE | 2018-04-08 19:38 | RAD ---
Date of service: 04/08/2018 HISTORY: cough wheezing COMPARISON: No prior. TECHNIQUE: Chest PA and lateral FINDINGS: LUNGS: No active pulmonary disease. PLEURA: No significant pleural effusion identified. No pneumothorax apparent. CARDIOVASCULAR: No aortic atherosclerotic calcification present. Normal cardiac size. No pulmonary vascular congestion. OSSEOUS STRUCTURES: No significant abnormalities. VISUALIZED UPPER ABDOMEN: Normal. OTHER FINDINGS: None. IMPRESSION: No acute cardiopulmonary disease appreciated.
[2018-04-09 00:25] VITALS: BP 125/80
--- NOTE | 2018-04-09 11:57 | CARD ---
APPROVED REPORT Date of service: 04/08/2018 EKG Measurement Heart [id number] <Conclusion> Sinus bradycardia Otherwise normal ECG
[2018-04-09 13:34] VITALS: PULSE 52; O2SAT 98
== END 2018-04-08 22:32 | disposition home or self-care (01) ==
LOC: H.ER 17:08
DX: J20.9 Acute bronchitis, unspecified (principal)